=== PATIENT | female | born 1960 | race Caucasian/White ===

== ENCOUNTER 2024-01-09 06:17 | Day surgery (SDC) | payer BC, SELFPAY ==
[2024-01-03 09:13] VITALS: BMI 31.5
[2024-01-03 10:06] LABS: Hematocrit 40.5 % (37.0-47.0); Hemoglobin 13.5 g/dL (12.0-16.0); Mean Corp Hgb Conc. 33.3 g/dL (33.0-37.0); Mean Corpuscular Hgb 29.5 pg (27.0-31.0); Mean Corpuscular Volume 88.4 fL (81.0-99.0); Mean Platelet Volume 10.9 fL (7.4-10.4); Platelet Count 274 10^3/uL (130-400); Red Blood Cell Count 4.58 10^6/uL (4.20-5.40); Red Cell Dist. Width 12.6 % (11.5-14.5); White Blood Cell Count 8.4 10^3/uL (4.8-10.8)
[2024-01-03 10:36] LABS: Blood Urea Nitrogen 18 mg/dl (7-17); Calcium 9.4 mg/dl (8.4-10.2); Carbon Dioxide 27 mmol/L (22-30); Chloride 104 mmol/L (98-107); Estimated Creatinine Clearance 97 ml/min; Glucose 87 mg/dl (70-99); Potassium 4.4 mmol/L (3.5-5.1); Sodium 139 mmol/L (135-145); eGFR > 60.00
[2024-01-09] VITALS (10 sets, daily range): BP systolic 117–155; BP diastolic 60–86; BMI 31.5
[2024-01-09] MEDS: Pyridium 200 MG PO (07:12)
[2024-01-09] MEDS: HEPARIN 5000 UNITS SC (07:13)
[2024-01-09] MEDS: NORMOSOL-R 1000 IV (07:21)
--- NOTE | 2024-01-09 10:40 | W.SUR.POST ---
Surgical Immediate Post Op
Note
Pre Op Diagnosis: Pelvic organ prolapse and stress incontinence
Post Op Diagnosis: Pelvic organ prolapse and stress incontinence
Procedure Performed: Vaginal extraperitoneal colpopexy, posterior colporrhaphy with perineoplasty, levator ani plication, single incision midurethral sling and cystoscopy
Primary Surgeon: Israel Cordova MD
Secondary Surgeons: None
Anesthesia: General with ET tube
Estimated Blood Loss: 100 ccc
Complications: None
Operative Findings: advanced stage pelvic organ prolapse
--- NOTE | 2024-01-09 10:41 | OR.RPT ---
Operative Report
Operative Report
HYSTEROPEXY
PREOPERATIVE DIAGNOSIS:
1.�� Pelvic organ prolapse
2.�� Stress urinary incontinence
POSTOPERATIVE DIAGNOSIS:
1.�� Pelvic organ prolapse
2.�� Stress urinary incontinence
PROCEDURE:
1.�� Hysteropexy uterine suspension with unilateral sacrospinous ligament fixation
2.�� Levator Ani Plication
3.�� Posterior colporrhaphy with perineoplasty
4.�� Single incision midurethral sling
5.�� Cystoscopy
ASSISTANTS:� None
�ANESTHESIA:� General anesthesia
ESTIMATED BLOOD LOSS: 100 cc
SPECIMENS:� None
COMPLICATIONS:� None
FINDINGS:� Intraoperative cystourethroscopy revealed normal bladder mucosa throughout.� No evidence of cystotomy, sutures, lacerations, lesions, or mesh.� There was normal efflux of urine from bilateral ureteral orifices.� Normal urethra.
INDICATIONS:� The patient has bothersome pelvic organ prolapse and urinary incontinence.� Preoperative urodynamic testing revealed stress urinary incontinence with urethral hypermobility.� Risks, benefits, indications and alternatives of the
procedure were reviewed with the patient.� Risks reviewed include bleeding, infection, damage to bladder, ureter urethra, bowel, blood vessels, nerves, mesh complications, post-operative urinary retention and post-operative urinary incontinence.�
All questions answered and informed consent obtained.
PROCEDURE:� On the day of surgery the patient was identified in the preoperative waiting area.� Informed consent was again reviewed.� The patient expressed understanding and desired to proceed with the surgery.� The patient was then taken to the
operating room.� Pneumatic compression devices were placed on her lower extremities bilaterally.� Ancef 2 grams and Flagyl 500mg IV was given.� General anesthesia was induced without difficulty.� Time out was taken to identify the patient and
procedure.� The patient was placed in the dorsal lithotomy position and prepped and draped in the usual sterile fashion.� Nunez catheter was placed to drain the bladder.
The unilateral sacrospinous ligament fixation was performed as follows: The posterior vaginal mucosa was grasped bilaterally with Allis clamps and local injection of 1% lidocaine with 1:200,000 epinephrine concentration was injected for
hydrodissection and hemostasis.�� A longitudinal incision was made along the posterior vaginal mucosa from the level of the cervix approximately 4 cm long.� The posterior vaginal mucosa was then dissected off of the underlying, and out to the sulci
using sharp and blunt dissection with Metzenbaum scissors.� On the patient�s right, the pararectal space was entered and sharp and blunt dissection was carried out to the level of the ischial spine, then medially to palpate and then dissect
connective tissue off of the sacrospinous ligament
Then, the Saffron device was loaded with a #0-PDS delayed absorbable suture.� The right sacrospinous ligament was palpated and Saffron device introduced over the ligament, about 2 cm medial to the ischial spine and deployed to pass the suture
through the ligament.�� The device was removed and right arm confirmed to have correct placement via palpation.� This was performed again with another #0-PDS suture and #0-Prolene. The ends of the two PDS sutures and one Prolene around the
sacrospinous ligament were then brought through the vagina and tied in order to elevate the vaginal apex.
The Solyx midurethral sling was performed as follows: Two Allis clamps were placed on the anterior vaginal mucosa at the level of the bladder neck and 1 cm from the urethral meatus. This area was infiltrated with 1% idocaine with 1:200,000
epinephrine. A midline incision was made between the two Allis clamps using a scalpel. The vaginal mucosa was dissected from the underlying pubocervical fascia using Metzenbaum, out to the level of the inferior pubic rami bilaterally. The Solyx was
placed in the right vaginal dissection below the inferior pubic rami, passed behind and around the pubic symphysis into the obturator muscle in standard fashion. The trochar was deployed. This was repeated on the left side. Tension was confirmed.
Cystoscopy was completed with above findings. The vaginal incision was closed with 2-0 Vicryl in a running continuous fashion.
The posterior repair and perineorrhaphy was performed as follows: The posterior vaginal mucosa and perineum skin were infiltrated with 1% lidocaine with 1:200,000 epinephrine. A triangular area of perineum skin was removed using a scalpel.� The
posterior vaginal mucosa was then opened up in the midline, going from the introitus toward the apex using Metzenbaum scissors.� The posterior vaginal mucosa was then dissected off the underlying rectovaginal fascia bilaterally out to the level of
the lateral sulci. The apical edge of the rectovaginal fascia was identified and plicated in the midline in two layers from deep to superficial with #2-0 PDS. Next 0-Vicryl sutures were used to plicate the levator ani muscle in the midline.
�Interrupted suture of #2-0 PDS were also used to plicate the transverse peritoneal and bulbospongiosus muscles in the midline to reconstruct the perineal body.� Excess vaginal mucosa was trimmed.� The vaginal mucosa and perineum skin were
approximated with #2-0 Vicryl in a running fashion.� Rectal exam revealed no stitches. Vaginal packing was not placed.
All instruments were removed.� The patient was awaked and sent to the PACU in stable condition. Sponge, lap and needle counts were correct x 2.� Dr. Cordova was scrubbed and present throughout the procedure.�
[2024-01-09] MEDS: DILAUDID 0.25 MG IV ×2 (11:03→11:19)
== END 2024-01-09 13:04 | disposition home or self-care (01) ==
LOC: SDS 06:17
PROVIDERS: ATTENDING PHYSICIAN Obstetrics & Gynecology; FAMILY PHYSICIAN Family Medicine; OTHER PHYSICIAN Internal Medicine Clinical Cardiac Electrophysiology; OTHER PHYSICIAN Internal Medicine Critical Care Medicine
DX: N81.6 Rectocele (principal); N39.3 Stress incontinence (female) (male); N36.41 Hypermobility of urethra
CPT/HCPCS: 57282; 57250; 57288; 36415; 80048; 85027; 86850; 86900; 86901; 93005

== ENCOUNTER → 2024-11-08 08:49 | Outpatient (REF) | payer BC, SELFPAY | LOC: DHSLP 08:49 | PROVIDERS: ATTENDING PHYSICIAN Internal Medicine Critical Care Medicine; FAMILY PHYSICIAN Family Medicine | DX: G47.33 Obstructive sleep apnea (adult) (pediatric) (principal) | CPT/HCPCS: 95800 ==